=== PATIENT | male | born 1955 | race Caucasian/White ===

== ENCOUNTER 2017-01-17 04:50 | Emergency (ER) | payer OTHER ==
[~2017-01-17] VITALS: Ht 172.7 cm; Wt 129.8 kg
[~2017-01-17 04:50] MED LIST: CELEBREX200 MG PO; Coumadin Protocol PO; Ecotrin PO; Feosol PO; Glucosamine/Chondroi PO; PRILOSEC OTC20 M1 PO; SENOKOT S,PE1 TABLET PO; Senokot S,Pericolace PO; Vicodin,Norco 5/325 PO; ZESTRIL,PRINIVI10 M1 PO; Zocor PO
[2017-01-17 05:08] LABS: HEMATOCRIT 46.9 % (38.0-50.0); MCH 26.2 PG (29.0-34.0); MCHC 32.4 G/DL (30.0-36.0); MCV 80.9 FL (86-99); MEAN PLAT.VOLUME 9.5 uM^3 (9.0-12.4); PLATELET COUNT 281 K/uL (156-360); RBC DIS.WIDTH-CV 14.3 % (11.8-14.6); RBC DIS.WIDTH-SD 41.5 % (39-53); WHITE BLOOD COUNT 15.9 K/uL (4.1-10.2)
[2017-01-17 05:39] LABS: CHLORIDE 105 mEq/L (99-109); POTASSIUM 4.3 mEq/L (3.7-5.4); SODIUM 137 mEq/L (136-147)
[2017-01-17 05:42] LABS: GLUCOSE 177 mg/dL (70-99)
[2017-01-17 05:43] LABS: ANION GAP 11 MEQ/L (2-14)
[2017-01-17 05:44] LABS: TOTAL BILIRUBIN 0.6 mg/dL (0.0-1.0)
[2017-01-17 05:45] LABS: ALKALINE PHOSPHATASE 67 IU/L (3-129); GFR ESTIMATE (CALCULATED) > 59 mL/min/
[2017-01-17 05:46] LABS: UREA NITROGEN (BUN) 14 mg/dL (9-23)
[2017-01-17 07:05] LABS: ADD MIUA? YES; BILIRUBIN NEGATIVE; BLOOD NEGATIVE; COLOR YELLOW ((YELLOW)); GLUCOSE (STRIP) NEGATIVE; KETONES NEGATIVE; LEUKOCYTES TRACE; NITRITE NEGATIVE; PROTEIN (STRIP) 30; SPECIFIC GRAVITY 1.028 (1.000-1.030); UROBILINOGEN 0.2 MG/DL (0.2-1.0)
[2017-01-17 07:09] LABS: BACTERIA 1+ /HPF; EPITHELIAL CELLS RARE /HPF; HYALINE CASTS 0-5 /LPF; MUCUS 1+ /LPF; RED BLOOD CELLS 0-5 /HPF (0-5); UCUL ADDED? NO
[2017-01-17] MEDS ORDERED: CIPRO500 MG PO (10:04)
[2017-01-17] MEDS ORDERED: FLAGYL500 MG PO (10:04)
[2017-01-17] MEDS ORDERED: ANUSOL-HC21 GM PR (10:04)
[2017-01-17] MEDS ORDERED: TYLENOL WITH C1 EACH PO (10:04)
[2017-01-17 10:22] LABS: C DIFF TOXIN NEGATIVE (NEGATIVE)
[2017-01-17 10:27] LABS: PROBE CHECK PASS; SPECIMEN PROCESSING CONTROL PASS
[2017-01-17 10:40] VITALS: BP 152/85
== END 2017-01-17 10:42 | disposition home or self-care (01) ==
LOC: EME 04:50
PROVIDERS: Emergency Medicine
DX: K57.32 Diverticulitis of large intestine without perforation or abscess without bleeding (principal); K64.4 Residual hemorrhoidal skin tags; N39.0 Urinary tract infection, site not specified; I10 Essential (primary) hypertension; Z87.442 Personal history of urinary calculi; Z96.653 Presence of artificial knee joint, bilateral; Z79.01 Long term (current) use of anticoagulants
CPT/HCPCS: 74022; 74177; 80053; 81003; 85027; 87493; 99281; 99285; J1885; J2270; J7030